=== PATIENT | female | born 1965 | race Caucasian/White ===

== ENCOUNTER → 2016-10-30 | Outpatient (CLI) | payer OTHER ==
[~2016-10-30] MED LIST: ESTR0.6261 PO; IBUP-1324 PO; [UNRECOGNIZED DRUG - CODE] PO
--- NOTE | 2016-10-30 09:01 | DI ---
Indication: ITS.REASON: R10.11 RUQ ABD PAIN PROCEDURE: US GALLBLADDER: Encounter: Initial Comparison: None Technique: Grayscale and color Doppler sonographic imaging of the right upper quadrant of the abdomen was performed. Findings: Hepatic parenchyma is homogeneous without evidence for focal mass. The gallbladder is normal. There is no wall thickening, pericholecystic fluid, sonographic Rahman's sign or cholelithiasis. Both the intra and extrahepatic biliary system are of normal caliber with the common duct measuring 2 mm in dimension. Visualized portions of the head and body of the pancreas are unremarkable. The right kidney is present without collecting system dilatation. The right kidney measures 10.1 cm in length. Impression: Normal right upper quadrant sonogram. .
--- NOTE | 2016-10-30 09:03 | DI ---
INDICATION: ITS.REASON: R05 COUGH PROCEDURE: CHEST 2-VIEWS UPRIGHT (PA \T\ LAT) Encounter: Initial COMPARISON: None FINDINGS: Mild prominence of the interstitial markings with hyperinflation. No focal pneumonia. There is no pleural effusion or pneumothorax. The heart size, mediastinal contours and pulmonary vascularity are within normal limits. There is no significant skeletal abnormality. IMPRESSION: No acute cardiopulmonary disease. Hyperinflation and findings of emphysema. .
== END ==
LOC: IMA 08:04
PROVIDERS: ATTEND Nurse Practitioner Family
DX: J43.9 Emphysema, unspecified (principal); R10.11 Right upper quadrant pain; N63 Unspecified lump in breast; R05 Cough
CPT/HCPCS: 71020; 76642; 76705; 77062; G0204

== ENCOUNTER → 2016-11-13 | Outpatient (CLI) | payer OTHER ==
[~2016-11-13] MED LIST changes: +IOHEXOL 300 MG/ML 75ml INJECTION ONE; +NORMAL SALINE 100 ML ONE; +SALINE FLUSH 10ml SYRINGE ONE
--- NOTE | 2016-11-13 10:28 | DI ---
Indication: ITS.REASON: R31.9 HEMATURIA; R10.11 RUQ ABD PAIN PROCEDURE: CT ABD/PELVIS W/CONTRAST ONLY: Encounter: Initial Comparison: Gallbladder ultrasound dated October 30, 2016 Technique: Axial CT images were performed through the abdomen and pelvis after the administration of intravenous contrast. Coronal and sagittal two-dimensional reformats. Automated Exposure Control and Iterative Reconstruction dose reducing techniques were utilized. Contrast: Omnipaque 300 67 mL Findings: The lung bases are clear. Small probable cyst in the central hepatic dome on image #9 measuring 8 mm in diameter. Two additional small subcentimeter low-attenuation foci in the posterior inferior right lobe of the liver, too small to definitively characterize. The liver is otherwise normal. No bile duct dilatation. The gallbladder is normal. The spleen, pancreas and adrenal glands are normal. Subcentimeter left renal foci, too small to definitively characterize. Kidneys are otherwise normal. No abdominal or pelvic adenopathy. No abdominal or pelvic adenopathy. Scattered atherosclerotic plaque in the arterial vasculature. The bladder is normal. Uterus is surgically absent. No free fluid. Sigmoid and descending colonic diverticulosis without evidence of diverticulitis. No evidence of a bowel obstruction. Bone windows show no acute findings. Impression: No acute disease process seen in the abdomen or pelvis. No clear etiology for the patient's symptoms. .
== END ==
LOC: IMA 08:18
PROVIDERS: ATTEND Nurse Practitioner Family
DX: R31.9 Hematuria, unspecified (principal); R10.11 Right upper quadrant pain
CPT/HCPCS: 74177; J7050; Q9967

== ENCOUNTER → 2016-11-22 | Outpatient (CLI) | payer OTHER ==
[~2016-11-22] MED LIST changes: -IOHEXOL 300 MG/ML 75ml INJECTION ONE; -NORMAL SALINE 100 ML ONE; +SINCALIDE 5 MCG/VIAL IJ ONE; +SODIUM CHLORIDE (Bacteriostatic) 30ml VIAL ONE
--- NOTE | 2016-11-22 09:42 | DI ---
Indication: ITS.REASON: R10.11 RUQ ABD PAIN PROCEDURE: NM HEPATOBIL/EF: Encounter: Initial Comparison: CT abdomen/pelvis dated November 13, 2016 Technique: 6.4 mCi of Tc-99m mebrofenin was injected intravenously. At approximately 50 minutes following this administration, 1 mcg of Kinevac was administered intravenously. Anterior planar images were obtained and a time/activity curve was calculated. FINDINGS: Radiotracer uptake is seen homogenously within the liver. There is normal clearance of radiotracer from the blood pool. The common bile duct is visualized at approximately 10 minutes. The gallbladder is visualized by 18 minutes, and radiotracer is excreted into the small bowel. There is no evidence of radiotracer outside the biliary or gastrointestinal tract. The gallbladder ejection fraction is normal at 99%. IMPRESSION: 1. Gallbladder visualization excluding acute cholecystitis. 2. Normal gallbladder ejection fraction of 99%, excluding biliary dyskinesia. .
== END ==
LOC: IMA 07:45
PROVIDERS: ATTEND Surgery
DX: R10.11 Right upper quadrant pain (principal)
CPT/HCPCS: 78227; A9537; J2805

== ENCOUNTER → 2016-12-13 | Outpatient (CLI) | payer OTHER ==
[~2016-12-13] MED LIST changes: -SALINE FLUSH 10ml SYRINGE ONE; -SINCALIDE 5 MCG/VIAL IJ ONE; -SODIUM CHLORIDE (Bacteriostatic) 30ml VIAL ONE
--- NOTE | 2016-12-13 13:08 | DI ---
Indication: ITS.REASON: M25.562 LEFT ANTERIOR KNEE PAIN; W19.XXXA FALL; S80.02XA TRAUMATI fall with anterior knee pain PROCEDURE: KNEE LEFT STANDING 3 VIEWS: Encounter: Initial Comparison: None Findings: No acute fracture or dislocation seen. Joint spaces are normal. No joint effusion. Incidental note is made of an os fabella, a normal anatomic variant. Impression: Normal exam .
== END ==
LOC: IMA 12:21
PROVIDERS: ATTEND Registered Nurse
DX: M25.562 Pain in left knee (principal); Z91.81 History of falling